=== PATIENT | male | born 1985 | race African-American/Black ===

== ENCOUNTER 2018-02-03 01:27 | Emergency (ER) | payer OTHER ==
[~2018-02-03] VITALS: Ht 185.4 cm; Wt 69.8 kg
--- NOTE | ~2018-02-03 | EKG ---
[place] [address] [facility] [address] [place] [address] ELECTROCARDIOGRAM REPORT Name: MILVIA CORONADO JR [id number] Admission: 02/03/18 Attend Phys: Discharge: 02/03/18 Date of : 85 Report #: [id number] THIS REPORT FOR: //name// [facility] ED Test Date: 2018-02-03 Test Time: 01:32:35 Pat Name: MILVIA CORONADO Department: Room: Gender: M Pattern Puncher: JOHANNY : 1985 Requested By: Patricia Casillas Order Number: [id number] MD: Jose Weston Measurements Intervals [place] Rate: 99 P: 83 [place]: 124 QRS: 86 QRSD: 77 T: 61 QT: 353 QTc: 453 Interpretive Statements Sinus rhythm Right atrial abnormality Early repolarization Compared to ECG 04/28/2016 16:12:25 heart rate has increased Electronically Signed On 02-04-2018 8:38:36 CDT by Jose Weston [email or web address] <ELECTRONICALLY SIGNED> By: Jose Weston MD, [facility] 02/04/18 [id number] Jose Weston MD, FACC /EPI
[~2018-02-03 01:27] MED LIST: APAP/CODEINE ELI5 M1 OR; CARAFATE 1 GM TA1 G1 PO; FLEXERIL PO; IBUPROFEN 400400 M1 PO; NAPROSYN500 M1 PO; NOHOMEMEDICATIONS; NORCO 5-325 TA1 EACH PO; PEPCID20 MG PO; PREDNISONE 20 M20 MG PO; PREDNISONE50 MG PO; PROVENTIL HFA6.7 G1 INH; ULTRAM 50MG TAB50 MG PO; ZPAK PO
[2018-02-03 02:29] LABS: ABSOLUTE NEUTROPHILS 3.5 thou/uL (1.4-8.2); BASOPHILS 1.4 % (0.0-2.0); EOSINOPHILS 7.4 % (0.0-3.0); HEMATOCRIT 42.5 % (42.0-52.0); HEMOGLOBIN 14.7 gm/dL (14.0-18.0); LYMPHOCYTES 37.8 % (24.0-44.0); MCH 30.7 pg (26.0-34.0); MCHC 34.5 g/dL (28.0-37.0); MCV 88.9 fL (80.0-100.0); MONOCYTES 6.6 % (1.0-8.0); PLATELET COUNT 227 thou/uL (150-400); POLYS 46.8 % (36.0-66.0); RBC 4.79 mil/uL (4.50-6.00); RDW 12.8 % (10.5-14.5); WBC 7.5 thou/uL (4.0-11.0)
[2018-02-03 02:36] LABS: ANION GAP 12 mmol/L (7-16); BUN 18 mg/dL (7-18); CALCIUM 8.7 mg/dL (8.5-10.1); CHLORIDE 102 mmol/L (98-107); CO2 25 mmol/L (21-32); GLUCOSE 86 mg/dL (74-106); POTASSIUM 3.8 mmol/L (3.5-5.1); SODIUM 139 mmol/L (136-145)
[2018-02-03 02:45] LABS: TROPONIN-I <0.06 ng/mL (<0.06)
[2018-02-03] MEDS ORDERED: IBUPROFEN 600600 M1 PO (02:45)
[2018-02-03 04:31] VITALS: BP 98/55
== END 2018-02-03 03:30 | disposition home or self-care (01) ==
LOC: ER 01:27
PROVIDERS: Emergency Medicine
DX: R09.1 Pleurisy (principal); R07.1 Chest pain on breathing; J45.909 Unspecified asthma, uncomplicated; Z87.891 Personal history of nicotine dependence